=== PATIENT | female | born 1990 | race Caucasian/White ===

== ENCOUNTER 2021-07-14 15:19 | Outpatient (CLI) | payer OTHER, SELFPAY ==
--- NOTE | 2021-07-14 13:40 | TONS_PTH ---
PATIENT: GRACIELA MIX LOC: [facility] U#:[id number] AGE/SX: 30/F ROOM: RE07/14/[address]: Dr. Jerry Thakkar MD : 1990 BED: DIS: 07/14/2021 SPEC #: [id number] RECD: 07/14/21 14:59 STATUS: WILLIAM RIVERO #: [id number] RENEE: 07/14/21 13:[address]: Jerry Thakkar DEPT: SURGICAL PATHOLOGY RECD BY: Shayy Silverman ENTERED: 07/15/21 11:25 SP TYPE: TONSILS OTHR DR: Dr. Shyla Roldan, [facility] Tissues: Tonsil, NOS Procedures: Surgery Specimen Level III HEADER OPERATION: Tonsillectomy PRE-OP DIAGNOSIS: Chronic tonsillitis TISSUE SUBMITTED: Bilateral tonsils, pin on right MICROSCOPIC DIAGNOSIS Right and left tonsils, bilateral tonsillectomies: Benign lymphoid follicular hyperplasia, consistent with chronic tonsillitis. Organisms consistent with actinomyces. AM:stephanie 07/16/2021 MICROSCOPIC DESCRIPTION Slides are reviewed. GROSS DESCRIPTION Received is one container labeled with the patient's name and designated tonsils - pin on right are two tonsils that in aggregate weigh 5.9 gm. The right tonsil has a pin on it and measures 3 x 2 x 1.5 cm. The left tonsil measures 3 x 1.5 x 1.2 cm. Both tonsils are similar in appearance. The external surfaces are pink-kolb, smooth, glistening and somewhat lobulated. Focally they are hemorrhagic, granular and bear cautery artifact. Serial cross sections through the tonsils reveal normal tonsillar architecture. Sections are submitted in two cassettes as follows: 1 - right tonsil, 2 - left tonsil. / AM:stephanie 07/15/2021 TC:5 CPT: 03356 x2
== END 2021-07-14 23:59 | disposition home or self-care (01) ==
LOC: LABSPEC 15:28
PROVIDERS: PCP Internal Medicine; Referring Provider Otolaryngology; Visit Provider Otolaryngology
DX: J35.8 Other chronic diseases of tonsils and adenoids (principal)
CPT/HCPCS: 88304

== ENCOUNTER 2021-07-29 13:34 | Outpatient (CLI) | payer OTHER, SELFPAY ==
[2021-08-05 06:08] LABS: Wheat <0.10 kU/L (Class 0)
[2021-08-05 09:34] LABS: Egg, Yolk <0.10 kU/L (Class 0); Peanut <0.10 kU/L (Class 0)
[2021-08-06 01:07] LABS: Almond <0.10 kU/L (Class 0); Apple <0.10 kU/L (Class 0); Banana <0.10 kU/L (Class 0); Barley, Whole Grain <0.10 kU/L (Class 0); Beef <0.10 kU/L (Class 0); Brazil Nut <0.10 kU/L (Class 0); Carrot <0.10 kU/L (Class 0); Cashew <0.10 kU/L (Class 0); Chicken <0.10 kU/L (Class 0); Clam <0.10 kU/L (Class 0); Codfish <0.10 kU/L (Class 0); Corn <0.10 kU/L (Class 0); Crab <0.10 kU/L (Class 0); Egg, White <0.10 kU/L (Class 0); Garlic <0.10 kU/L (Class 0); Gluten <0.10 kU/L (Class 0); Hazelnut/Filbert <0.10 kU/L (Class 0); Lobster <0.10 kU/L (Class 0); Milk (Cow) <0.10 kU/L (Class 0); Oat <0.10 kU/L (Class 0); Onion <0.10 kU/L (Class 0); Orange <0.10 kU/L (Class 0); Pea <0.10 kU/L (Class 0); Peach <0.10 kU/L (Class 0); Peanut <0.10 kU/L (Class 0); Pecan <0.10 kU/L (Class 0); Pork <0.10 kU/L (Class 0); Potato, White <0.10 kU/L (Class 0); Rice <0.10 kU/L (Class 0); SCALLOP <0.10 kU/L (Class 0); SESAME SEED <0.10 kU/L (Class 0); Salmon <0.10 kU/L (Class 0); Shrimp <0.10 kU/L (Class 0); Soybean <0.10 kU/L (Class 0); Strawberry <0.10 kU/L (Class 0); Tomato <0.10 kU/L (Class 0); Tuna <0.10 kU/L (Class 0); Walnut, (Food) <0.10 kU/L (Class 0); Wheat <0.10 kU/L (Class 0); Yeast <0.10 kU/L (Class 0)
[2021-08-06 09:23] LABS: Turkey <0.10 kU/L (Class 0)
== END 2021-07-29 23:59 | disposition home or self-care (01) ==
PROVIDERS: PCP Internal Medicine; Referring Provider Otolaryngology; Visit Provider Otolaryngology
DX: T78.40XA Allergy, unspecified, initial encounter (principal)
CPT/HCPCS: 36415; 86003

== ENCOUNTER 2021-07-30 13:57 | Emergency (ER) | payer OTHER, SELFPAY ==
[2021-07-30 13:58] VITALS: BP 141/104; PULSE 98; RESP 14; TEMP 36.2; O2SAT 98; BMI 22.9
[2021-07-30 14:45] LABS: Bacteria 0 SEEN /hpf (None Seen); Mucous, Urine 0 SEEN /hpf (<or=2+); Squamous Epithelial Cells - UA 0 SEEN /hpf (5-10)
[2021-07-30 14:48] LABS: Color, Urine Yellow (Yellow); Glucose, Dipstick Normal (Normal); Ketone-Dipstick Negative (Negative); Leukocyte Esterase-Dipstick 500 /ul (Negative); Nitrite-Dipstick Negative (Negative); Occult Blood-Urine 250 /ul (Negative); Protein-Dipstick 15 mg/dl (Negative); Urine Bilirubin Dipstick Negative (Negative); Urine Clarity Clear (Clear); Urine Urobilinogen Normal (Normal)
[2021-07-30 14:56] LABS: Red Blood Cells-Urine 0-5 SEEN /hpf (0-5); White Blood Cells 5-10 SEEN /hpf (0-5)
--- NOTE | 2021-07-30 15:14 | CT_ITS ---
EXAM: CT ABDOMEN AND PELVIS WITHOUT INTRAVENOUS CONTRAST CLINICAL INDICATION: LT FLANK/LLQ PAIN TECHNIQUE: Helically acquired images were obtained of the abdomen and pelvis without intravenous contrast. This CT exam was performed using one or more of the following dose reduction techniques: automated exposure control, adjustment of the mA and/or kV according to patient size, and/or use of iterative reconstruction technique. This report was created using [employer] report generation technology. COMPARISON: None. FINDINGS: LOWER THORAX: Unremarkable. Lung bases are clear. No cardiomegaly. No significant pericardial effusion. ABDOMEN: LIVER: Unremarkable. Homogeneous. GALLBLADDER AND BILE DUCTS: Contracted. No calcified gallstones. No gallbladder distention or wall edema. No intra- or extrahepatic biliary ductal dilation. PANCREAS: Unremarkable. No focal cystic mass. SPLEEN: Unremarkable. Normal size without focal cystic or solid mass. ADRENALS: Unremarkable. No nodules. KIDNEYS AND URETERS: Unremarkable. Normal renal size and position. No hydronephrosis. STOMACH AND BOWEL: Unremarkable. No stomach or bowel distention. No focal inflammatory change. PELVIS: APPENDIX: No evidence of acute appendicitis. BLADDER: Unremarkable. REPRODUCTIVE: Unremarkable as visualized. No mass. ABDOMEN and PELVIS: INTRAPERITONEAL SPACE: Unremarkable. No ascites or other fluid collection. No free air. BONES/JOINTS: Bilateral L5 spondylolysis with sclerosis on the left side. No suspicious lytic or blastic abnormality. SOFT TISSUES: Unremarkable. No discrete abdominal or pelvic wall hernia. VASCULATURE: Unremarkable. Abdominal aorta is non-dilated. LYMPH NODES: Unremarkable. No enlarged lymph nodes. CT/Abdomen/Pelvis without Cont IMPRESSION: Negative CT of the abdomen and pelvis without intravenous contrast. Electronically Signed: Lázaro Jeronimo MD ([place]) at 16:28 EDT Reading Location ID and State: [facility] / [place] , Service support ,
[2021-07-30] MEDS: 0.9% Normal Saline 1,000 ML 150 ML IV (15:21)
[2021-07-30] MEDS: Ketorolac 30 MG/ML Syringe IV (15:21)
--- NOTE | 2021-07-30 15:45 | EDS_ITS ---
HPI <Dr. Arely Sun MD - Last Filed: 07/30/21 22:49> History of Present Illness Chief Complaint: Abd Pain <RADHA WALLS - Last Filed: 07/30/21 17:01> History of Present Illness Informant: patient Onset/Context/Timing Onset: Days (4) Context: Gradual Onset Current Severity: 08/09 Narrative Narrative: Patient presents secondary to lower abdominal pain that began 4 days ago. This pain began radiating to lower back yesterday and increased in LLQ today. Patient also reports nausea, headache, and lightheadedness. Patient reports recent constipation, which is unusual for her. Prior to his her stool was mucus. Patient took acetaminophen at 0800. Patient states she is sexually active, but denies unusual discharge or concern for STI. Prior similar symptoms: Yes (2016 similar symptoms, self treated with left over antibiotics) Recent Illness/Hospitalization: No PFSH <Dr. Arely Sun MD - Last Filed: 07/30/21 22:49> PFSH Allergy/AdvReac Type Severity Reaction Status Date / Time barley Allergy Anaphylaxis Verified 07/30/21 14:02 Egg Derived Allergy Anaphylaxis Verified 07/30/21 14:02 grass pollen-perennial rye, Allergy Anaphylaxis Verified 07/30/21 14:02 standar lactase [From Dairy Aid] Allergy Anaphylaxis Verified 07/30/21 14:02 Penicillins Allergy PT UNSURE Verified 07/30/21 14:02 OF REACTION rice Allergy Anaphylaxis Verified 07/30/21 14:02 acetaminophen [From Percocet] AdvReac Vomiting Verified 07/30/21 14:02 corn AdvReac Vomiting Verified 07/30/21 14:02 oxycodone [From Percocet] AdvReac Vomiting Verified 07/30/21 14:02 Surgical History (Updated 07/30/21 @ 16:00 by RADHA WALLS) History of foot surgery History of tonsillectomy Social History (Updated 07/30/21 @ 16:01 by RADHA WALLS) Smoking Status: Never smoker alcohol intake: never substance use type: does not use <RADHA WALLS - Last Filed: 07/30/21 17:01> ROS ED Constitutional Constitutional ED: Reports chills, fever(s) and subjective Eyes Eyes: Denies blurry vision, change in vision or diplopia ENT ENT ED: Denies ear pain or sore throat Cardiovascular Cardiovascular: Denies chest pain, palpitations or racing heartbeat Respiratory/Chest Respiratory/Chest: Denies cough or dyspnea Gastrointestinal Gastrointestinal: Reports abdominal pain, constipation, diarrhea, nausea and other Details: Bowel movements fluctuate from ; Denies vomiting Genitourinary Genitourinary ED: Reports LMP (females 10-50) Details: Comment: (07/28/21); Denies dysuria or hematuria Musculoskeletal Musculoskeletal: Reports back pain; Denies arthralgias or myalgias Integumentary Denies rash Neurologic Neurologic: Reports headache(s); Denies weakness Psychiatric Psychiatric: Denies anxiety or depression Endocrine Endocrinology: Denies polydipsia, polyphagia or polyuria EXAM <Dr. Arely Sun MD - Last Filed: 07/30/21 22:49> Physical Exam Const Vital Signs: 07/30/21 13:58 07/30/21 16:51 Temperature 97.1 F L Temperature Source Temporal Pulse Rate 98 80 Respiratory Rate 14 15 Blood Pressure 141/104 H 115/63 Blood Pressure Mean 116 Pulse Ox 98 100 Oxygen Delivery Method Room Air <RADHA WALLS - Last Filed: 07/30/21 17:01> Physical Exam Const Vital Signs: 07/30/21 13:58 07/30/21 16:51 Temperature 97.1 F L Temperature Source Temporal Pulse Rate 98 80 Respiratory Rate 14 15 Blood Pressure 141/104 H 115/63 Blood Pressure Mean 116 Pulse Ox 98 100 Oxygen Delivery Method Room Air Positive well nourished and well developed General Appearance ED: well developed HEENT Reports moist mucous membranes Negative for trauma or tenderness Eyes PERRL and EOMs intact bilaterally Neck no lymphadenopathy and supple Chest Wall inspection of chest normal and palpation of chest normal Resp normal respiratory effort and clear to auscultation bilaterally Cardio regular rate and regular rhythm GI Auscultation: hypoactive bowel sounds Palpation: soft and tender; Negative for rebound tenderness present Back/Spine no CVA tenderness Extremity normal to inspection General Extremety ED: Negative for edema or tenderness General Extremity: Negative for edema Neuro oriented x3 and CN's II-XII intact bilaterally Sensorium / Orientation: alert Motor Exam: strength 5/5 throughout Psych mental status grossly normal Skin no rashes or lesions noted MDM <Dr. Arely Sun MD - Last Filed: 07/30/21 22:49> MDM Lab Data Labs: Laboratory Results - last 24 hr 07/30/21 07/30/21 07/30/21 14:40 15:20 15:20 WBC 10.6 RBC 3.79 L Hgb 12.0 Hct 35.5 L MCV 93.7 MCH 31.7 MCHC 33.8 RDW Std Deviation 40.0 RDW Coeff of Yamileth 11.7 Plt Count 327 MPV 10.3 Immature Gran % (Auto) 0.300 Neut % (Auto) 78.4 H Lymph % (Auto) 15.8 L Grundy % (Auto) 4.9 Eos % (Auto) 0.4 Baso % (Auto) 0.2 Absolute Neuts (auto) 8.3 H Absolute Lymphs (auto) 1.68 Nucleated RBC % 0 Sodium 140 Potassium 4.0 Chloride 107 Carbon Dioxide 30.0 Anion Gap 3 L BUN 6 L Creatinine 0.59 Estim Creat Clear Calc 109.27 Est GFR (MDRD) Af Amer 152 Est GFR (MDRD) Non-Af 125 BUN/Creatinine Ratio 10.2 Glucose 91 Calcium 8.7 Serum , Qual Urine Color Yellow Urine Clarity Clear Urine pH 8.0 Ur Specific [place] 1.010 Urine Protein 15 H Urine Glucose (UA) Normal Urine Ketones Negative Urine Occult Blood 250 H Urine Nitrite Negative Urine Bilirubin Negative Urine Urobilinogen Normal Ur Leukocyte Esterase 500 H Urine RBC 0-5 SEEN Urine WBC 5-10 SEEN Ur Squamous Epith Cells 0 SEEN Urine Bacteria 0 SEEN Urine Mucus 0 SEEN 07/30/21 15:20 WBC RBC Hgb Hct MCV MCH MCHC RDW Std Deviation RDW Coeff of Yamileth Plt Count MPV Immature Gran % (Auto) Neut % (Auto) Lymph % (Auto) [place]undy % (Auto) Eos % (Auto) Baso % (Auto) Absolute Neuts (auto) Absolute Lymphs (auto) Nucleated RBC % Sodium Potassium Chloride Carbon Dioxide Anion Gap BUN Creatinine Estim Creat Clear Calc Est GFR (MDRD) Af Amer Est GFR (MDRD) Non-Af BUN/Creatinine Ratio Glucose Calcium Serum , Qual NEGATIVE Urine Color Urine Clarity Urine pH Ur Specific [place] Urine Protein Urine Glucose (UA) Urine Ketones Urine Occult Blood Urine Nitrite Urine Bilirubin Urine Urobilinogen Ur Leukocyte Esterase Urine RBC Urine WBC Ur Squamous Epith Cells Urine Bacteria Urine Mucus Radiography Diagnostic Testing: Clinical Impression(s) from Imaging Studies Abdomen/Pelvis CT 07/30/21 15:14 IMPRESSION: Negative CT of the abdomen and pelvis without intravenous contrast. Electronically Signed: Lázaro Jeronimo MD ([place]) at 16:28 EDT , Treatment and Re-Evaluation Narrative: Patient seen and evaluated with [employer] student. I personally interviewed and examined the patient. I was involved in all aspects of patient's orders, interpretation of results, and treatment. Patient presents with abdominal pain ongoing for the past 3 to 4 days. She points the pain across the lower abdomen worse in the left. Last evening it started going around into her back. She does report ongoing history of mucus- like stools and irregular periods. She has been worked up for those in the past. Patient sitting up in bed no acute distress. She is nontoxic-appearing. Head neck examination unremarkable. Heart is regular rate and rhythm. Lung sounds are clear. Abdomen is soft with mild tenderness in the lower abdomen. No guarding or rebou nd. Lab work, urinalysis, CT flank obtained. Lab work unremarkable. Urinalysis shows 5-10 white cells but 0 bacteria and no nitrites. CT scan is unremarkable. On my review of the imaging she does appear to have stool scattered throughout the bowel. She was instructed to use [id number] treatment for constipation. Return instructions are provided. <RADHA WALLS - Last Filed: 07/30/21 17:01> [facility] Narrative Medical decision making narrative: Urinalysis ordered from triage. Will also obtain CBC, BMP, serum , and CT flank. Lab Data Attestation: I reviewed the patient's lab results. Labs: Laboratory Results - last 24 hr 07/30/21 07/30/21 07/30/21 14:40 15:20 15:20 WBC 10.6 RBC 3.79 L Hgb 12.0 Hct 35.5 L MCV 93.7 MCH 31.7 MCHC 33.8 RDW Std Deviation 40.0 RDW Coeff of Yamileth 11.7 Plt Count 327 MPV 10.3 Immature Gran % (Auto) 0.300 Neut % (Auto) 78.4 H Lymph % (Auto) 15.8 L [place]undy % (Auto) 4.9 Eos % (Auto) 0.4 Baso % (Auto) 0.2 Absolute Neuts (auto) 8.3 H Absolute Lymphs (auto) 1.68 Nucleated RBC % 0 Sodium 140 Potassium 4.0 Chloride 107 Carbon Dioxide 30.0 Anion Gap 3 L BUN 6 L Creatinine 0.59 Estim Creat Clear Calc 109.27 Est GFR (MDRD) Af Amer 152 Est GFR (MDRD) Non-Af 125 BUN/Creatinine Ratio 10.2 Glucose 91 Calcium 8.7 Serum , Qual Urine Color Yellow Urine Clarity Clear Urine pH 8.0 Ur Specific [place] 1.010 Urine Protein 15 H Urine Glucose (UA) Normal Urine Ketones Negative Urine Occult Blood 250 H Urine Nitrite Negative Urine Bilirubin Negative Urine Urobilinogen Normal Ur Leukocyte Esterase 500 H Urine RBC 0-5 SEEN Urine WBC 5-10 SEEN Ur Squamous Epith Cells 0 SEEN Urine Bacteria 0 SEEN Urine Mucus 0 SEEN 07/30/21 15:20 WBC RBC Hgb Hct MCV MCH MCHC RDW Std Deviation RDW Coeff of Yamileth Plt Count MPV Immature Gran % (Auto) Neut % (Auto) Lymph % (Auto) [place]undy % (Auto) Eos % (Auto) Baso % (Auto) Absolute Neuts (auto) Absolute Lymphs (auto) Nucleated RBC % Sodium Potassium Chloride Carbon Dioxide Anion Gap BUN Creatinine Estim Creat Clear Calc Est GFR (MDRD) Af Amer Est GFR (MDRD) Non-Af BUN/Creatinine Ratio Glucose Calcium Serum , Qual NEGATIVE Urine Color Urine Clarity Urine pH Ur Specific [place] Urine Protein Urine Glucose (UA) Urine Ketones Urine Occult Blood Urine Nitrite Urine Bilirubin Urine Urobilinogen Ur Leukocyte Esterase Urine RBC Urine WBC Ur Squamous Epith Cells Urine Bacteria Urine Mucus Radiography Diagnostic Testing: Clinical Impression(s) from Imaging Studies Abdomen/Pelvis CT 07/30/21 15:14 IMPRESSION: Negative CT of the abdomen and pelvis without intravenous contrast. Electronically Signed: Lázaro Jeronimo MD (Bro[place]) at 16:28 EDT Reading Location ID and State: [facility] / [place] , Service support , Treatment and Re-Evaluation Narrative: Blood work and urinalysis reviewed. CBC and BMP unremarkable. negative. Urinalysis positive for protein, blood, and leukocyte esterase; will send for culture. CT flank shows constipation. On re-evaluation, patient is comfortably resting. Patient results reviewed. Patient encouraged to increase fluids and take OTC miralax and stool softener. Patient aware to follow up with PCP to manage care. Return instructions provided. Understanding josue dominguez. Discharge Plan Triage Chief Complaint: Abd Pain ED Provider: Arely Sun Dx/Rx/DC Orders Clinical Impression: Constipation Instructions: ED Constipation (Adult) Primary Care Provider: Shyla Roldan Referrals: Shyla Roldan, [Primary Care Provider] - 1 Week if not improving Activity Restrictions/Additional Instructions: Your urine did not show any sign of infection, but your sample will be sent for culture. If an antibiotic is required, you will be notified within 48 hours. For your constipation, Miralax and a stool softener can be taken. Both of these are available over the counter. Disposition Disposition: Home, Self Care Discharge Date/Time: 07/30/21 16:51
[2021-07-30 15:47] LABS: Absolute Lymphocyte Count 1.68 X10^3/uL (0.83-4.51); Absolute Neutrophil Count 8.3 X10^3/uL (2.0-7.7); Anion Gap 3 (5-15); BUN 6 mg/dL (7-18); BUN/Creat Ratio 10.2 RATIO (10-20); Basophil# 0.02 X10^3/uL; Basophil% 0.2 % (0-1); Calcium,Total 8.7 mg/dL (8.5-10.1); Chloride 107 mmol/L (98-107); Creatinine, Serum 0.59 mg/dL (0.55-1.02); EST Glomerular Filtration Rate 125 mL/min (>60); Eosinophil# 0.04 X10^3/uL; Eosinophils% 0.4 % (0-5); Est Glom Filt Rate - Afr Amer 152 mL/min (>60); Estimated Creatinine Clearance 109.27 ml/min; Glucose 91 mg/dL (74-106); Hematocrit 35.5 % (37-47); Lymphocyte # 1.68 X10^3/ul (0.83-4.51); Lymphocyte % 15.8 % (19-41); Mean Corp Hgb Conc 33.8 g/dL (32-36); Mean Corpuscular Hgb 31.7 pg (27.0-32.0); Mean Corpuscular Volume 93.7 fL (81-99); Mean Platelet Vol. 10.3 fl (6.2-12.0); Monocyte# 0.52 X10^3/uL; Monocyte% 4.9 % (0-10); NRBC Flagged by Analyzer 0 % (0-5); Neutrophil # 8.32 X10^3/uL (2.7-7.7); Neutrophil % 78.4 % (47-70); Platelet Count 327 K/mm3 (150-450); RBC Distribution Width CV 11.7 % (11.6-14.6); Red Blood Count 3.79 M/mm3 (4.2-5.4); Sodium Level 140 mmol/L (136-145); White Blood Count 10.6 K/mm3 (4.4-11.0)
[2021-07-30 16:04] LABS: Internal QC Validated? YES +Cl - CLEAR BKGD; Pregnancy, Serum, hCG Quali. NEGATIVE Negative
[2021-07-30 16:51] VITALS: BP 115/63; PULSE 80; RESP 15; O2SAT 100
== END 2021-07-30 16:51 | disposition home or self-care (01) ==
PROVIDERS: Emergency Medicine; Emergency Provider Emergency Medicine; PCP Internal Medicine; Visit Provider Emergency Medicine
DX: K59.00 Constipation, unspecified (principal)
CPT/HCPCS: 74176; 80048; 81001; 84703; 85025; 96361; 96374; 99283; J7030; A4216

== ENCOUNTER 2021-07-31 23:38 | Emergency (ER) | payer OTHER, SELFPAY ==
[2021-07-31 23:40] VITALS: BP 118/78; PULSE 118; RESP 15; TEMP 37.7; O2SAT 100; BMI 26.1
[2021-07-31 23:42] VITALS: BP 118/78; PULSE 123; RESP 16; O2SAT 100
--- NOTE | 2021-08-01 00:04 | CT_ITS ---
ACR Level 3 findings have been noted. An addendum which confirms receipt of the report will follow. STUDY: CT ABDOMEN AND PELVIS WITH CONTRAST REASON FOR EXAM: Female, 30 years old. abd pain RADIATION DOSAGE (If Supplied By Facility): CTDIvol = ( 6.74 ) mGy, DLP = ( 317.10 ) mGycm TECHNIQUE: Transaxial images were obtained from the dome of the diaphragm to the symphysis pubis without oral contrast. IV 100mL Isovue-300 was administered. Sagittal and coronal images were reconstructed. 3.75 mm axials, 2.5 mm coronal and sagittal reconstructions. Individualized dose optimization techniques were used for this CT. COMPARISON: Unenhanced CT July 30, 2021, report indicates no acute abnormality evident at that time. FINDINGS: LOWER CHEST: Normal. LIVER: Borderline hepatomegaly or elongated right lobe of liver, 18.3 cm craniocaudal. GALLBLADDER/BILE DUCTS: Normal. PANCREAS: Normal. SPLEEN: Normal. ADRENAL GLANDS: Normal. KIDNEYS/URETERS/BLADDER: Mild wall thickening and enhancement of the left renal pelvis, it is only 9 mm, and mild wall enhancement of left ureter. Moderate wall enhancement and thickening of the minimally distended urinary bladder. Highly suspicious for UTI. No evidence of significant erick pyelonephritis. RETROPERITONEUM/AORTA: Normal. BOWEL/MESENTERY: No oral or rectal contrast is present. Mild fluid and gas in the stomach, mildly prominent fluid and gas in small bowel, moderate stool in the proximal half of the colon, mild gas in the sigmoid. APPENDIX: Segments of small bowel appendix are seen near the right pelvic sidewall. PERITONEUM: Trace intrapelvic fluid. REPRODUCTIVE ORGANS: Dominant follicle in the right ovary, 2.3 cm x 2.5 cm x 2.2 cm. BONES/SOFT TISSUES: Unilateral right L5 pars defect. No spondylolisthesis. OTHER: None. CT/Abdomen/Pelvis W IV Cont ONLY IMPRESSION: Findings typical of UTI including wall thickening and enhancement of left renal pelvis, left ureter and urinary bladder. The kidneys enhance symmetrically. Trace intrapelvic fluid. Dominant right ovarian follicle. Moderate stool in most of the proximal half of the colon. Mildly prominent small bowel contents. Minimal mesenteric adenopathy. Electronically Signed: Ligia Stanton MD at 1:34 EDT ,
[2021-08-01 00:25] VITALS: BP 122/78; PULSE 88; RESP 18; TEMP 37.3; O2SAT 99
[2021-08-01] MEDS: Ceftriaxone 1 GM/50 ML BAG IV (00:26)
[2021-08-01 00:38] LABS: Absolute Lymphocyte Count 0.76 X10^3/uL (0.83-4.51); Absolute Neutrophil Count 13.8 X10^3/uL (2.0-7.7); Basophil# 0.02 X10^3/uL; Basophil% 0.1 % (0-1); Hematocrit 35.1 % (37-47); Hemoglobin 11.6 g/dL (12.0-15.0); Lymphocyte # 0.76 X10^3/ul (0.83-4.51); Lymphocyte % 4.9 % (19-41); Mean Corpuscular Hgb 30.9 pg (27.0-32.0); Mean Corpuscular Volume 93.6 fL (81-99); Mean Platelet Vol. 10.3 fl (6.2-12.0); Monocyte% 5.2 % (0-10); Mucous, Urine 0 SEEN /hpf (<or=2+); NRBC Flagged by Analyzer 0 % (0-5); Neutrophil # 13.82 X10^3/uL (2.7-7.7); Neutrophil % 89.3 % (47-70); Platelet Count 284 K/mm3 (150-450); RBC Distribution Width CV 11.8 % (11.6-14.6); RBC Distribution Width SD 40.7 fl (35.1-43.9); Red Blood Count 3.75 M/mm3 (4.2-5.4); White Blood Count 15.5 K/mm3 (4.4-11.0)
[2021-08-01 00:39] LABS: Color, Urine Yellow (Yellow); Glucose, Dipstick Normal (Normal); Ketone-Dipstick 5 mg/dl (Negative); Leukocyte Esterase-Dipstick 500 /ul (Negative); Nitrite-Dipstick Positive (Negative); Occult Blood-Urine 150 /ul (Negative); Protein-Dipstick 30 mg/dl (Negative); Specific Gravity, Urine 1.005 (1.002-1.030); Urine Bilirubin Dipstick Negative (Negative); Urine Clarity Clear (Clear); Urine Urobilinogen Normal (Normal); Urine pH 6.5 (5.0 - 8.0)
[2021-08-01] MEDS: Ketorolac 30 MG/ML Syringe IV (00:43)
[2021-08-01] MEDS: Ondansetron 4 MG/2 ML Vial IV (00:43)
[2021-08-01] MEDS: 0.9% Normal Saline 1,000 ML 999 ML IV (00:44)
[2021-08-01 00:59] LABS: AST(SGOT) 16 U/L (15-37); Alanine Aminotransfer ALT/SGPT 25 U/L (13-56); Albumin, Serum 3.8 g/dL (3.2-5.0); Alkaline Phosphatase 73 U/L (45-117); Anion Gap 5 (5-15); BUN 5 mg/dL (7-18); BUN/Creat Ratio 6.9 RATIO (10-20); Bilirubin, Direct 0.18 mg/dL (0.00-0.30); Calcium,Total 9.1 mg/dL (8.5-10.1); Chloride 103 mmol/L (98-107); Creatinine, Serum 0.72 mg/dL (0.55-1.02); EST Glomerular Filtration Rate 99 mL/min (>60); Est Glom Filt Rate - Afr Amer 120 mL/min (>60); Estimated Creatinine Clearance 89.54 ml/min; Globulin 4.1 g/dL (2.2-4.2); Glucose 105 mg/dL (74-106); Lipase 79 U/L (73-393); Potassium 3.8 mmol/L (3.5-5.1); Protein, Total 7.9 g/dL (6.4-8.2); Sodium Level 136 mmol/L (136-145)
[2021-08-01 01:00] LABS: Lactic Acid 0.8 mmol/L (0.4-1.9)
[2021-08-01 01:03] LABS: Bacteria 2+ /hpf (None Seen); White Blood Cells 50-100 SEEN /hpf (0-5)
[2021-08-01 01:04] LABS: Red Blood Cells-Urine 0-5 SEEN /hpf (0-5)
[2021-08-01 01:05] LABS: Squamous Epithelial Cells - UA 0-5 SEEN /hpf (5-10)
[2021-08-01] MEDS: Acetaminophen 500 MG Tablet 1000 MG PO (02:00)
[2021-08-01 02:03] VITALS: TEMP 36.6; O2SAT 98
--- NOTE | 2021-08-01 02:03 | EX.ED.DYSGE1 ---
HPI History of Present Illness Chief Complaint: Abd Pain Narrative Narrative: Patient is a 30-year-old female who was seen approximately 24 hours ago for similar complaint. At that time she had basic blood work and a noncontrast CT obtained. She states that today she developed subjective fevers and chills with some left-sided back pain and also noticed urinary frequency urgency and dysuria. She states because of the changing symptoms she was concern for a missed infection and secondary to this presents for evaluation PFSH PFSH Medical History Anxiety Asthma Depression Former smoker Home Medications albuterol 1 - 2 mcg INHALATION Q4H PRN PRN 07/31/21 [History Last Taken Unknown] baclofen 10 mg PO DAILY 07/31/21 [History Last Taken Unknown] loratadine-pseudoephedrine [Claritin-D 12 Hour] 1 tab PO Q12H 07/31/21 [History Last Taken Unknown] ketorolac 10 mg PO 4X/DAY PRN PRN 5 Days #20 tab 08/01/21 [Rx Last Taken Unknown] ondansetron 4 mg PO TID PRN #21 tab 08/01/21 [Rx Last Taken Unknown] sulfamethoxazole-trimethoprim [Bactrim DS] 1 tab PO BID 7 Days #14 tab 08/01/21 [Rx Last Taken Unknown] Allergy/AdvReac Type Severity Reaction Status Date / Time barley Allergy Anaphylaxis Verified 07/31/21 23:40 Egg Derived Allergy Anaphylaxis Verified 07/31/21 23:40 grass pollen-perennial rye, Allergy Anaphylaxis Verified 07/31/21 23:40 standar lactase [From Dairy Aid] Allergy Anaphylaxis Verified 07/31/21 23:40 Penicillins Allergy PT UNSURE Verified 07/31/21 23:40 OF REACTION rice Allergy Anaphylaxis Verified 07/31/21 23:40 acetaminophen [From Percocet] AdvReac Vomiting Verified 07/31/21 23:40 corn AdvReac Vomiting Verified 07/31/21 23:40 oxycodone [From Percocet] AdvReac Vomiting Verified 07/31/21 23:40 Surgical History (Updated 07/30/21 @ 16:00 by RADHA WALLS) History of foot surgery History of tonsillectomy Social History (Updated 07/30/21 @ 16:01 by RADHA WALLS) Smoking Status: Former smoker alcohol intake: never substance use type: does not use ROS ROS ED Constitutional Constitutional ED: Reports chills, fever(s) and subjective ENT ENT ED: Denies sore throat Cardiovascular Cardiovascular: Denies chest pain Respiratory/Chest Respiratory/Chest: Denies cough or dyspnea Gastrointestinal Gastrointestinal: Reports abdominal pain, constipation and nausea; Denies diarrhea or vomiting Genitourinary Genitourinary ED: Reports dysuria and urinary frequency Musculoskeletal Musculoskeletal: Reports back pain and myalgias Integumentary Denies rash Neurologic Neurologic: Denies headache(s) Hematologic/Lymphatic Hematologic/Lymphatic: Denies easy bleeding or easy bruising EXAM Physical Exam Const Vital Signs: 07/31/21 23:40 07/31/21 23:42 08/01/21 00:25 Temperature 100 F H 99.2 F H Temperature Source Temporal Temporal Pulse Rate 118 H 123 H 88 Respiratory Rate 15 16 18 Blood Pressure 118/78 118/78 122/78 H Blood Pressure Mean 91 91 92 Pulse Ox 100 100 99 Oxygen Delivery Method Room Air Room Air Room Air 08/01/21 02:03 Temperature 97.8 F Temperature Source Temporal Pulse Rate Respiratory Rate Blood Pressure Blood Pressure Mean Pulse Ox 98 Oxygen Delivery Method Positive well nourished and well developed General Appearance ED: well developed HEENT Reports moist mucous membranes Eyes PERRL and EOMs intact bilaterally Neck supple Resp normal respiratory effort and clear to auscultation bilaterally Cardio regular rate and regular rhythm GI non-distended GI Narrative: Abdomen is soft and nondistended with hypoactive bowel sounds. There is pain with palpation in the suprapubic and left lower quadrants without voluntary guarding or rigidity. No pulsatile mass or increased tympany. Palpation: soft Back/Spine Back/Spine Narrative: Positive left CVA pain Extremity normal to inspection Neuro oriented x3 and CN's II-XII intact bilaterally Sensorium / Orientation: alert Motor Exam: strength 5/5 throughout Psych mental status grossly normal Skin no rashes or lesions noted MDM MDM MDM Narrative Medical decision making narrative: Patient presented to the ER with low-grade fever which was different from her vital signs the day prior. With her worsening pain and now fever as well as new report of left-sided back pain I did elect to repeat laboratory studies and perform a CT scan with IV contrast. The patient's white count has elevated from 10.6-15.5. This is consistent with her worsening pain and fever. Despite this her lactic acid is normal and there is no bandemia reported. Kidney function is normal but urine does show changes consistent with infection. CT scan shows constipation is similar to the other day but there is inflammation and thickening to the bladder and left ureteral region consistent with UTI progressing to pyelonephritis. At this time her pain is controlled her blood pressure is normal and as her lactate need for admission. Patient was given Rocephin in the ER and was placed on Bactrim for home. She understands that if symptoms fail to improve with outpatient therapy she may need to be seen again in the ER and possibly admitted for IV antibiotics but at this time will try outpatient therapy. Lab Data Attestation: I reviewed the patient's lab results. Labs: Laboratory Results - last 24 hr 08/01/21 08/01/21 08/01/21 00:27 00:27 00:27 WBC 15.5 H RBC 3.75 L Hgb 11.6 L Hct 35.1 L MCV 93.6 MCH 30.9 MCHC 33.0 RDW Std Deviation 40.7 RDW Coeff of [place] 11.8 Plt Count 284 MPV 10.3 Immature Gran % (Auto) 0.500 Neut % (Auto) 89.3 H Lymph % (Auto) 4.9 L [place] % (Auto) 5.2 Eos % (Auto) 0.0 Baso % (Auto) 0.1 Absolute Neuts (auto) 13.8 H Absolute Lymphs (auto) 0.76 L Nucleated RBC % 0 Sodium 136 Potassium 3.8 Chloride 103 Carbon Dioxide 28.0 Anion Gap 5 BUN 5 L Creatinine 0.72 Estim Creat Clear Calc 89.54 Est GFR (MDRD) Af Amer 120 Est GFR (MDRD) Non-Af 99 BUN/Creatinine Ratio 6.9 L Glucose 105 Lactic Acid 0.8 Calcium 9.1 Total Bilirubin 0.60 Direct Bilirubin 0.18 AST 16 ALT 25 Alkaline Phosphatase 73 Total Protein 7.9 Albumin 3.8 Globulin 4.1 Lipase 79 Urine Color Urine Clarity Urine pH Ur Specific [place] Urine Protein Urine Glucose (UA) Urine Ketones Urine Occult Blood Urine Nitrite Urine Bilirubin Urine Urobilinogen Ur Leukocyte Esterase Urine RBC Urine WBC Ur Squamous Epith Cells Urine Bacteria Urine Mucus 08/01/21 00:27 WBC RBC Hgb Hct MCV MCH MCHC RDW Std Deviation RDW Coeff of [place] Plt Count MPV Immature Gran % (Auto) Neut % (Auto) Lymph % (Auto) [place] % (Auto) Eos % (Auto) Baso % (Auto) Absolute Neuts (auto) Absolute Lymphs (auto) Nucleated RBC % Sodium Potassium Chloride Carbon Dioxide Anion Gap BUN Creatinine Estim Creat Clear Calc Est GFR (MDRD) Af Amer Est GFR (MDRD) Non-Af BUN/Creatinine Ratio Glucose Lactic Acid Calcium Total Bilirubin Direct Bilirubin AST ALT Alkaline Phosphatase Total Protein Albumin Globulin Lipase Urine Color Yellow Urine Clarity Clear Urine pH 6.5 Ur Specific [place] 1.005 Urine Protein 30 H Urine Glucose (UA) Normal Urine Ketones 5 H Urine Occult Blood 150 H Urine Nitrite Positive H Urine Bilirubin Negative Urine Urobilinogen Normal Ur Leukocyte Esterase 500 H Urine RBC 0-5 SEEN Urine WBC 50-100 SEEN Ur Squamous Epith Cells 0-5 SEEN Urine Bacteria 2+ Urine Mucus 0 SEEN Radiography Diagnostic Testing: Clinical Impression(s) from Imaging Studies Abdomen/Pelvis CT 08/01/21 00:04 IMPRESSION: Findings typical of UTI including wall thickening and enhancement of left renal pelvis, left ureter and urinary bladder. The kidneys enhance symmetrically. Trace intrapelvic fluid. Dominant right ovarian follicle. Moderate stool in most of the proximal half of the colon. Mildly prominent small bowel contents. Minimal mesenteric adenopathy. Electronically Signed: Ligia Stanton MD at 1:34 EDT Reading Location ID and State: [facility] / [place] Tel , Service support , ADDENDUM: 08/01/21 0157 IMPRESSION: Findings typical of UTI including wall thickening and enhancement of left renal pelvis, left ureter and urinary bladder. The kidneys enhance symmetrically. Trace intrapelvic fluid. Dominant right ovarian follicle. Moderate stool in most of the proximal half of the colon. Mildly prominent small bowel contents. Minimal mesenteric adenopathy. N.B. : Gerber Kan MD, confirmed on 08/01/2021 01:50:15 (ET) that the healthcare facility has received the radiology report. Electronically Signed: Ligia Stanton MD at 1:34 EDT Reading Location ID and State: [facility] / [place] Tel , Service support , Discharge Plan Triage Chief Complaint: Abd Pain ED Provider: Gerber Kan Dx/Rx/DC Orders Clinical Impression: Pyelonephritis, Constipation Instructions: Treating Constipation, Kidney Infec Dc Prescriptions: New sulfamethoxazole-trimethoprim [Bactrim DS] 800-160 mg tablet 1 tab PO BID 7 Days Qty: 14 RF: 0 ondansetron 4 mg tablet,disintegrating 4 mg PO TID PRN (Reason: nausea and vomiting) Qty: 21 RF: 0 ketorolac 10 mg tablet 10 mg PO 4X/DAY PRN PRN (Reason: pain) 5 Days Qty: 20 RF: 0 No Action baclofen 10 mg tablet 10 mg PO DAILY RF: 0 Claritin-D 12 Hour 5-120 mg Tablet Extended Release 12 Hr 1 tab PO Q12H RF: 0 albuterol 90 mcg/actuation Aerosol 1 - 2 mcg INHALATION Q4H PRN PRN (Reason: Wheezing) RF: 0 Primary Care Provider: Shyla Roldan Referrals: Shyla Roldan DO [Primary Care Provider] - Disposition Disposition: Home, Self Care Discharge Date/Time: 08/01/21 02:14
[2021-08-01] MEDS: Contrast Allergy Safety Check IV (02:11)
== END 2021-08-01 02:14 | disposition home or self-care (01) ==
PROVIDERS: Emergency Provider Emergency Medicine; PCP Internal Medicine; Visit Provider Emergency Medicine
DX: N12 Tubulo-interstitial nephritis, not specified as acute or chronic (principal); K59.00 Constipation, unspecified; Z87.891 Personal history of nicotine dependence; J45.909 Unspecified asthma, uncomplicated
CPT/HCPCS: 74177; 80048; 80076; 81001; 83605; 83690; 85025; 87077; 87086; 87088; 87186; 96365; 96366; 96375; 99283; J7030; Q9967; A4216; J2405